=== PATIENT | female | born 1955 | race Caucasian/White ===

== ENCOUNTER 2022-07-02 15:16 | Outpatient (REF) | payer MEDICARE, SELFPAY ==
[2022-07-02 15:28] LABS: HCT 46.1 % (36.0-46.0); HGB 15.5 g/dL (11.2-15.7); MCH 30.8 pg (27.0-33.0); MCHC 33.6 % (32.0-36.0); MCV 92 fL (80-95); MPV 11.4 fL (8.0-11.0); Platelet Count 235 10^3/uL (130-400); RBC 5.04 10^6/uL (3.93-5.22); RDW 13.7 % (11.7-14.6); RDW-SD 46.4 fL; WBC 9.21 10^3/uL (4.4-10.8)
[2022-07-02 15:53] LABS: Hemoglobin A1C 5.7 % (<5.7)
[2022-07-02 15:58] LABS: ALT 106 U/L (14-59); AST 44 U/L (15-37); Albumin 3.9 g/dL (3.4-5.0); Alkaline Phosphatase 64 U/L (46-116); Anion Gap 12.6 mmol/L (3-11); BUN 15 mg/dL (7-18); CO2 24.4 mmol/L (21.0-32.0); CREATININE 0.9 mg/dL (0.55-1.02); Calcium 9.4 mg/dL (8.5-10.1); Chloride 104 mmol/L (98-107); Estimated GFR 70.95 (mL/min/1.73m2); Glucose 101 mg/dL (74-106); Potassium 4.5 mmol/L (3.5-5.1); Sodium 141 mmol/L (136-145); Total Protein 7.6 g/dL (6.4-8.2)
== END 2022-07-02 15:17 | disposition home or self-care (01) ==
LOC: NCHCN 15:16
PROVIDERS: PCP Family Medicine; Visit Provider Physician Assistant Medical
DX: K76.0 Fatty (change of) liver, not elsewhere classified (principal); R73.09 Other abnormal glucose
CPT/HCPCS: 80053; 85027; 83036

== ENCOUNTER 2022-12-31 13:30 | Outpatient (REF) | payer MEDICARE, SELFPAY ==
[2022-12-31 14:51] LABS: HCT 46.9 % (36.0-46.0); HGB 15.7 g/dL (11.2-15.7); MCH 30.3 pg (27.0-33.0); MCHC 33.5 % (32.0-36.0); MCV 90 fL (80-95); MPV 10.7 fL (8.0-11.0); Platelet Count 254 10^3/uL (130-400); RBC 5.19 10^6/uL (3.93-5.22); RDW 13.5 % (11.7-14.6); WBC 7.15 10^3/uL (4.4-10.8)
[2022-12-31 15:01] LABS: Hemoglobin A1C 5.5 % (<5.7)
[2022-12-31 15:05] LABS: ALT 88 U/L (14-59); AST 54 U/L (15-37); Albumin 3.8 g/dL (3.4-5.0); Alkaline Phosphatase 59 U/L (46-116); Anion Gap 10.5 mmol/L (3-11); BUN 15 mg/dL (7-18); Bilirubin, Total 1.2 mg/dL (0.2-1.0); CO2 24.5 mmol/L (21.0-32.0); CREATININE 0.9 mg/dL (0.55-1.02); Calcium 9.8 mg/dL (8.5-10.1); Calculated LDL 152 mg/dL (<100); Chloride 103 mmol/L (98-107); Cholesterol 234 mg/dL (<200); Estimated GFR 70.51 (mL/min/1.73m2); Glucose 113 mg/dL (74-106); HDL Cholesterol 60 mg/dL (40-60); Potassium 4.3 mmol/L (3.5-5.1); Sodium 138 mmol/L (136-145); Total Protein 8.3 g/dL (6.4-8.2); Triglyceride 114 mg/dL (<150)
== END 2022-12-31 13:31 | disposition home or self-care (01) ==
LOC: NCHCN 13:30
PROVIDERS: PCP Family Medicine; Visit Provider Physician Assistant Medical
DX: I10 Essential (primary) hypertension (principal); R73.03 Prediabetes; K76.0 Fatty (change of) liver, not elsewhere classified; R79.89 Other specified abnormal findings of blood chemistry
CPT/HCPCS: 80053; 80061; 85027; 83036

== ENCOUNTER 2023-07-01 18:21 | Outpatient (REF) | payer MEDICARE, SELFPAY ==
[2023-07-01 15:27] LABS: HCT 46.6 % (36.0-46.0); HGB 15.3 g/dL (11.2-15.7); MCH 30.5 pg (27.0-33.0); MCHC 32.8 % (32.0-36.0); MCV 93 fL (80-95); MPV 10.7 fL (8.0-11.0); Platelet Count 219 10^3/uL (130-400); RBC 5.01 10^6/uL (3.93-5.22); RDW 13.9 % (11.7-14.6); RDW-SD 47.4 fL; WBC 6.82 10^3/uL (4.4-10.8)
[2023-07-01 15:47] LABS: ALT 77 U/L (14-59); AST 42 U/L (15-37); Albumin 3.6 g/dL (3.4-5.0); Alkaline Phosphatase 59 U/L (46-116); Anion Gap 9.1 mmol/L (3-11); BUN 17 mg/dL (7-18); Bilirubin, Total 1.2 mg/dL (0.2-1.0); CO2 25.9 mmol/L (21.0-32.0); CREATININE 0.9 mg/dL (0.55-1.02); Calculated LDL 142 mg/dL (<100); Chloride 108 mmol/L (98-107); Cholesterol 218 mg/dL (<200); Estimated GFR 70.51 (mL/min/1.73m2); Glucose 100 mg/dL (74-106); HDL Cholesterol 53 mg/dL (40-60); Potassium 4.2 mmol/L (3.5-5.1); Sodium 143 mmol/L (136-145); Total Protein 7.7 g/dL (6.4-8.2); Triglyceride 118 mg/dL (<150)
== END 2023-07-01 18:22 | disposition home or self-care (01) ==
LOC: NCHCN 18:21
PROVIDERS: PCP Family Medicine; Visit Provider Physician Assistant Medical
DX: K76.0 Fatty (change of) liver, not elsewhere classified (principal)
CPT/HCPCS: 80053; 80061; 85027

== ENCOUNTER 2023-10-20 10:57 | Outpatient (REF) | payer MEDICARE, SELFPAY ==
[2023-10-20 17:20] LABS: Abs Immature Grans 0.02 10^3/uL (0.0-0.06); Absolute Basophil Count 0.07 10^3/uL (0.0-0.2); Absolute Eosinophil Count 0.21 10^3/uL (0.0-0.7); Absolute Monocyte Count 0.43 10^3/uL (0.1-0.8); Absolute Neutrophil Count 4.93 10^3/uL (1.2-6.7); Basophils % 0.8 %; Eosinophils % 2.5 %; HCT 43.8 % (36.0-46.0); HGB 14.3 g/dL (11.2-15.7); Immature Grans % 0.2 %; Lymphocytes % 31.5 %; MCH 30.3 pg (27.0-33.0); MCHC 32.6 % (32.0-36.0); MCV 93 fL (80-95); MPV 11.1 fL (8.0-11.0); Monocytes % 5.2 %; Neutrophils % 59.8 %; Platelet Count 211 10^3/uL (130-400); RBC 4.72 10^6/uL (3.93-5.22); RDW 13.9 % (11.7-14.6); RDW-SD 47.2 fL; WBC 8.26 10^3/uL (4.4-10.8)
[2023-10-20 17:36] LABS: ALT 43 U/L (14-59); AST 30 U/L (15-37); Albumin 3.7 g/dL (3.4-5.0); Alkaline Phosphatase 64 U/L (46-116); Calculated LDL 73 mg/dL (<100); Cholesterol 152 mg/dL (<200); HDL Cholesterol 57 mg/dL (40-60); Total Protein 7.3 g/dL (6.4-8.2); Triglyceride 112 mg/dL (<150)
[2023-10-20 18:29] LABS: Hemoglobin A1C 5.7 % (<5.7)
[2023-10-20 19:58] LABS: Bilirubin, Direct 0.3 mg/dL (0.0-0.2)
== END 2023-10-20 10:58 | disposition home or self-care (01) ==
LOC: NCHCN 10:57
PROVIDERS: PCP Family Medicine; Visit Provider Physician Assistant Medical
DX: E78.5 Hyperlipidemia, unspecified (principal); R73.03 Prediabetes; K76.0 Fatty (change of) liver, not elsewhere classified
CPT/HCPCS: 80061; 80076; 83036; 85025

== ENCOUNTER 2024-01-02 16:13 | Outpatient (REF) | payer MEDICARE, SELFPAY ==
[2024-01-02 17:45] LABS: HCT 44.8 % (36.0-46.0); HGB 14.7 g/dL (11.2-15.7); MCH 30.4 pg (27.0-33.0); MCHC 32.8 % (32.0-36.0); MCV 93 fL (80-95); Platelet Count 186 10^3/uL (130-400); RBC 4.84 10^6/uL (3.93-5.22); RDW-SD 47.9 fL; WBC 7.44 10^3/uL (4.4-10.8)
[2024-01-02 17:59] LABS: ALT 38 U/L (14-59); AST 34 U/L (15-37); Albumin 3.8 g/dL (3.4-5.0); Alkaline Phosphatase 69 U/L (46-116); Anion Gap 9.4 mmol/L (3-11); BUN 18 mg/dL (7-18); Bilirubin, Total 1.49 mg/dL (0.2-1.0); CO2 27.6 mmol/L (21.0-32.0); CREATININE 0.9 mg/dL (0.55-1.02); Calcium 9.3 mg/dL (8.5-10.1); Chloride 104 mmol/L (98-107); Estimated GFR 70.07 (mL/min/1.73m2); Glucose 104 mg/dL (74-106); Potassium 4.5 mmol/L (3.5-5.1); Sodium 141 mmol/L (136-145); Total Protein 7.8 g/dL (6.4-8.2)
== END 2024-01-02 16:14 | disposition home or self-care (01) ==
LOC: NCHCN 16:13
PROVIDERS: PCP Family Medicine; Visit Provider Physician Assistant Medical
DX: K76.0 Fatty (change of) liver, not elsewhere classified (principal)
CPT/HCPCS: 80053; 85027

== ENCOUNTER 2024-07-09 15:25 | Outpatient (REF) | payer MEDICARE, SELFPAY ==
[2024-07-09 16:08] LABS: Abs Immature Grans 0.02 10^3/uL (0.0-0.06); Absolute Basophil Count 0.07 10^3/uL (0.0-0.2); Absolute Eosinophil Count 0.16 10^3/uL (0.0-0.7); Absolute Lymphocyte Count 2.23 10^3/uL (1.2-3.4); Absolute Monocyte Count 0.47 10^3/uL (0.1-0.8); Absolute Neutrophil Count 5.39 10^3/uL (1.2-6.7); Basophils % 0.8 %; Eosinophils % 1.9 %; HCT 46.4 % (36.0-46.0); HGB 15.5 g/dL (11.2-15.7); Immature Grans % 0.2 %; Lymphocytes % 26.7 %; MCH 30.3 pg (27.0-33.0); MCHC 33.4 % (32.0-36.0); MCV 91 fL (80-95); MPV 11.7 fL (8.0-11.0); Monocytes % 5.6 %; Neutrophils % 64.8 %; Platelet Count 224 10^3/uL (130-400); RBC 5.11 10^6/uL (3.93-5.22); RDW 14.2 % (11.7-14.6); RDW-SD 47.6 fL; WBC 8.34 10^3/uL (4.4-10.8)
[2024-07-09 16:25] LABS: ALT 113 U/L (14-59); AST 84 U/L (15-37); Albumin 3.9 g/dL (3.4-5.0); Alkaline Phosphatase 84 U/L (46-116); Anion Gap 11.7 mmol/L (3-11); BUN 16 mg/dL (7-18); Bilirubin, Total 1.5 mg/dL (0.2-1.0); CO2 23.3 mmol/L (21.0-32.0); CREATININE 0.8 mg/dL (0.55-1.02); Calcium 9.6 mg/dL (8.5-10.1); Calculated LDL 59 mg/dL (<100); Chloride 106 mmol/L (98-107); Cholesterol 156 mg/dL (<200); Estimated GFR 80.71 (mL/min/1.73m2); Glucose 93 mg/dL (74-106); HDL Cholesterol 64 mg/dL (>or=50); Potassium 4.3 mmol/L (3.5-5.1); Sodium 141 mmol/L (136-145); Total Protein 8.1 g/dL (6.4-8.2); Triglyceride 168 mg/dL (<150)
[2024-07-09 16:28] LABS: Hemoglobin A1C 5.6 % (<5.7)
== END 2024-07-09 15:26 | disposition home or self-care (01) ==
LOC: NCHCN 15:25
PROVIDERS: PCP Family Medicine; Visit Provider Physician Assistant Medical
DX: K76.0 Fatty (change of) liver, not elsewhere classified (principal); R73.03 Prediabetes
CPT/HCPCS: 80053; 80061; 83036; 85025

== ENCOUNTER 2025-01-14 07:53 | Outpatient (REF) | payer MEDICARE, OTHER, SELFPAY ==
[2025-01-14 15:42] LABS: HCT 46.0 % (36.0-46.0); HGB 15.1 g/dL (11.2-15.7); MCH 30.0 pg (27.0-33.0); MCHC 32.8 % (32.0-36.0); MCV 91 fL (80-95); MPV 11.1 fL (8.0-11.0); Platelet Count 231 10^3/uL (130-400); RBC 5.04 10^6/uL (3.93-5.22); RDW 14.0 % (11.7-14.6); RDW-SD 47.1 fL; WBC 8.19 10^3/uL (4.4-10.8)
[2025-01-14 16:03] LABS: ALT 40 U/L (14-59); AST 29 U/L (15-37); Albumin 3.9 g/dL (3.4-5.0); Alkaline Phosphatase 77 U/L (46-116); Anion Gap 10.2 mmol/L (3-11); BUN 20 mg/dL (7-18); Bilirubin, Total 1.3 mg/dL (0.2-1.0); CO2 26.8 mmol/L (21.0-32.0); Calcium 9.6 mg/dL (8.5-10.1); Chloride 105 mmol/L (98-107); Estimated GFR 80.21 (mL/min/1.73m2); Glucose 104 mg/dL (74-106); Potassium 4.4 mmol/L (3.5-5.1); Sodium 142 mmol/L (136-145); Total Protein 7.9 g/dL (6.4-8.2)
== END 2025-01-14 07:54 | disposition home or self-care (01) ==
LOC: NCHCN 07:53
PROVIDERS: PCP Family Medicine; Visit Provider Physician Assistant Medical
DX: K76.0 Fatty (change of) liver, not elsewhere classified (principal)
CPT/HCPCS: 80053; 85027

== ENCOUNTER → 2025-02-05 00:51 | Outpatient (CLI) | payer MEDICARE, SELFPAY ==
--- NOTE | 2025-02-05 | DI.DEXA_ITS ---
Exam(s) XR DEXA BONE DENSITY W/WO [facility] EXAM: XR DEXA BONE DENSITY W/WO [facility] CLINICAL HISTORY: SCREENING FOR OSTEOPOROSIS, ASYMPTOMATIC MENOPAUSAL STATE Z78.0 TECHNIQUE: COMPARISON: DX DEXA BONE DENSITY WITH HALEY from 10/22/2013 FINDINGS: Lateral Spine Image: Unremarkable. No compression deformities identified. Left hip: Total T-Score: 0.0. This compares to 0.1 on the prior examination. Total Z-Score: 1.4 T- and Z-scores: There is no evidence of osteoporosis. Lumbar Spine: Total T-Score: -0.6. This compares to -0.2 on the prior examination. Total Z-Score: 1.3 T- and Z-scores: Within normal limits. IMPRESSION: No evidence of osteoporosis.
== END ==
PROVIDERS: PCP Family Medicine; Visit Provider Physician Assistant Medical
DX: Z13.820 Encounter for screening for osteoporosis (principal); Z78.0 Asymptomatic menopausal state
CPT/HCPCS: 77080